=== PATIENT | female | born 1950 | race Caucasian/White ===

== ENCOUNTER 2016-05-30 12:43 | Emergency (ER) | payer OTHER, MEDICAID ==
[~2016-05-30] VITALS: Ht 162.6 cm; Wt 77.1 kg
[~2016-05-30 12:43] MED LIST: ARIP5TAB10; ASPI-1063 PO; CHOL50006; CLOP75TA2 PO; DIPH25CA83 PO; DOCU-19; ESOM40CA; ESOM40CA PO; FAMO20TA98 PO; FLUO40CA49; FLUO40CA8; FLUO40CA8 PO; GLU500 PO; GLU850 PO; HYDR-1189 PO; HYDR-3924 PO; LEVO100T PO; LEVO200T8 PO; LIP10 PO; METF-304; PRO20; QUET300T2 PO; QUET300T5; QUET400T; QUET400T3 PO; QUET50TA14; SERAQUEL; TOPI100T11 PO; TOPI200T PO; TOPI25TA8; VALS160T2 PO; VALS1TAB6 PO; ZOLP5TAB2; [UNRECOGNIZED DRUG - CODE]; [UNRECOGNIZED DRUG - CODE]
[2016-05-30 13:23] VITALS: BP 120/71; PULSE 106; RESP 18; TEMP 97.2; O2SAT 98
[2016-05-30 13:44] LABS: BILIRUBIN,URINE 1+ (NEGATIVE); CLARITY/URINE HAZY (CLEAR); COLOR,URINE YELLOW (YELLOW); GLUCOSE,URINE NEGATIVE (NEGATIVE); KETONES,URINE TRACE (NEGATIVE); LEUKOCYTE ESTERASE ,URINE 2+ (NEGATIVE); NITRITE, URINE NEGATIVE (NEGATIVE); PROTEIN URINE TRACE (NEGATIVE); UROBILINOGEN,URINE 0.2 (0.2-1.0)
[2016-05-30 13:48] LABS: BLOOD, URINE TRACE (NEGATIVE)
[2016-05-30 14:12] LABS: BACTERIA,URINE FEW /HPF (None Seen); MUCUS,URINE None Seen /LPF (None Seen); RBC,URINE 0-3 /HPF (0-3); WBC,URINE 20-50 /HPF (0-3)
[2016-05-30 15:22] VITALS: BP 118/74; PULSE 98; RESP 15; TEMP 97.2; O2SAT 100
== END 2016-05-30 15:22 | disposition home or self-care (01) ==
LOC: SED 12:43
DX: N39.0 Urinary tract infection, site not specified (principal); E11.9 Type 2 diabetes mellitus without complications; G43.909 Migraine, unspecified, not intractable, without status migrainosus; D64.9 Anemia, unspecified; F20.9 Schizophrenia, unspecified; Z90.710 Acquired absence of both cervix and uterus
CPT/HCPCS: 81000-TC; 87086; 87186-TC; 99284

== ENCOUNTER 2017-01-25 15:09 | Outpatient (CLI) | payer OTHER, MEDICAID ==
[~2017-01-25 15:09] MED LIST changes: -ARIP5TAB10; -CHOL50006; -DIPH25CA83 PO; -DOCU-19; -ESOM40CA; -ESOM40CA PO; -FLUO40CA49; -FLUO40CA8; -GLU500 PO; -HYDR-1189 PO; -LEVO200T8 PO; -METF-304; -PRO20; -QUET300T2 PO; -QUET300T5; -QUET400T; -QUET50TA14; -SERAQUEL; -TOPI100T11 PO; -TOPI25TA8; -VALS160T2 PO; -VALS1TAB6 PO; -ZOLP5TAB2; -[UNRECOGNIZED DRUG - CODE]; -[UNRECOGNIZED DRUG - CODE]
== END 2017-01-25 19:39 | disposition home or self-care (01) ==
LOC: SMA 15:09
PROVIDERS: ATTEND Family Medicine
DX: Z12.31 Encounter for screening mammogram for malignant neoplasm of breast (principal)
CPT/HCPCS: G0202

== ENCOUNTER 2017-02-18 13:26 | Outpatient (CLI) | payer OTHER, MEDICAID | END 2017-02-18 20:36 | disposition home or self-care (01) | LOC: SMA 13:26 | PROVIDERS: ATTEND Family Medicine | DX: N63.10 Unspecified lump in the right breast, unspecified quadrant (principal) | CPT/HCPCS: 76642; G0206 ==

== ENCOUNTER 2017-03-04 16:49 | Emergency (ER) | payer OTHER, MEDICAID ==
[~2017-03-04] VITALS: Ht 162.6 cm; Wt 77.6 kg
[2017-03-04 16:53] VITALS: BP_SYST 124
[2017-03-04] MEDS ORDERED: IBUPROFEN 800 MG TABLET PO ONE (17:30)
[2017-03-04 17:58] LABS: BILIRUBIN,URINE NEGATIVE (NEGATIVE); BLOOD, URINE NEGATIVE (NEGATIVE); CLARITY/URINE CLOUDY (CLEAR); COLOR,URINE YELLOW (YELLOW); GLUCOSE,URINE NEGATIVE (NEGATIVE); KETONES,URINE NEGATIVE (NEGATIVE); LEUKOCYTE ESTERASE ,URINE 1+ (NEGATIVE); NITRITE, URINE NEGATIVE (NEGATIVE); PROTEIN URINE NEGATIVE (NEGATIVE)
[2017-03-04 18:19] LABS: RBC,URINE NONE SEEN /HPF (0-3); URIC ACID CRYSTALS,URINE 0-10 /HPF (None Seen); URINE AMORPHOUS PHOSPHATES 3+ /HPF (None Seen)
[2017-03-04 18:20] LABS: BACTERIA,URINE MODERATE /HPF (None Seen); MUCUS,URINE None Seen /LPF (None Seen)
[2017-03-04 18:43] VITALS: BP_SYST 124
== END 2017-03-04 18:32 | disposition home or self-care (01) ==
LOC: SED 16:49
DX: N39.0 Urinary tract infection, site not specified (principal); G43.909 Migraine, unspecified, not intractable, without status migrainosus; K21.9 Gastro-esophageal reflux disease without esophagitis; I10 Essential (primary) hypertension; E11.9 Type 2 diabetes mellitus without complications; F20.0 Paranoid schizophrenia; Z86.73 Personal history of transient ischemic attack (TIA), and cerebral infarction without residual deficits; Z86.2 Personal history of diseases of the blood and blood-forming organs and certain disorders involving the immune mechanism; Z79.899 Other long term (current) drug therapy
CPT/HCPCS: 81000; 87086; 99284; J7030

== ENCOUNTER 2017-04-06 12:51 | Emergency (ER) | payer OTHER, MEDICAID ==
[~2017-04-06] VITALS: Ht 165.1 cm; Wt 72.6 kg
[2017-04-06 12:58] VITALS: BP_SYST 119
[2017-04-06 15:02] LABS: BILIRUBIN,URINE NEGATIVE (NEGATIVE); BLOOD, URINE 3+ (NEGATIVE); CLARITY/URINE HAZY (CLEAR); COLOR,URINE YELLOW (YELLOW); GLUCOSE,URINE NEGATIVE (NEGATIVE); KETONES,URINE NEGATIVE (NEGATIVE); LEUKOCYTE ESTERASE ,URINE 3+ (NEGATIVE); NITRITE, URINE NEGATIVE (NEGATIVE); PH,URINE 6.5 (5.0-8.0); PROTEIN URINE 1+ (NEGATIVE); UROBILINOGEN,URINE 0.2 (0.2-1.0)
[2017-04-06 15:15] LABS: BASOPHILS # (AUTO) 0.1 K/uL (0.0-0.2); EOSINOPHILS % (AUTO) 0.3 % (0.0-4.0); HEMATOCRIT 36.9 % (36-48); HEMOGLOBIN 11.9 g/dL (12.0-16.0); LYMPHOCYTES # (AUTO) 1.7 K/uL (1.0-5.5); LYMPHOCYTES % (AUTO) 12.4 % (20.5-51.5); MEAN CORPUSCULAR HEMOGLOBIN 30 pg (27-31); MEAN CORPUSCULAR HGB CONC 32 % (32-36); MEAN CORPUSCULAR VOLUME 92 fL (79.0-98.0); MONOCYTES # (AUTO) 0.7 K/uL (0.0-1.0); MONOCYTES % (AUTO) 5.4 % (1.7-9.3); NEUTROPHILS # (AUTO) 10.9 K/uL (1.8-7.7); NEUTROPHILS % (AUTO) 80.9 % (40.0-70.0); PLATELET COUNT (AUTO) 308 K/uL (130-430); RED CELL DISTRIBUTION WIDTH 12.8 % (9.0-15.0); WHITE BLOOD COUNT (AUTO) 13.4 K/uL (4.8-10.8)
[2017-04-06 15:16] LABS: BACTERIA,URINE MODERATE /HPF (None Seen); RBC,URINE 20-50 /HPF (0-3); WBC,URINE >100 /HPF (0-3)
[2017-04-06 15:31] LABS: CREATININE 0.61 mg/dL (0.55-1.30)
[2017-04-06 15:36] LABS: ALBUMIN 3.8 g/dL (3.4-4.8); TOTAL BILIRUBIN 0.3 mg/dL (0.0-1.0)
[2017-04-06] MEDS ORDERED: cefTRIAXone 1 GM in D5W 50 ML IV ONE (16:30)
[2017-04-06] MEDS ORDERED: cefTRIAXone 1 GM VIAL ONE (17:16)
[2017-04-06 17:45] VITALS: BP_SYST 119
== END 2017-04-06 17:45 | disposition home or self-care (01) ==
LOC: SED 12:51
DX: N39.0 Urinary tract infection, site not specified (principal); R31.9 Hematuria, unspecified; I10 Essential (primary) hypertension; E11.9 Type 2 diabetes mellitus without complications; K21.9 Gastro-esophageal reflux disease without esophagitis; F20.0 Paranoid schizophrenia; Z86.73 Personal history of transient ischemic attack (TIA), and cerebral infarction without residual deficits; Z90.710 Acquired absence of both cervix and uterus; Z86.2 Personal history of diseases of the blood and blood-forming organs and certain disorders involving the immune mechanism; Z79.82 Long term (current) use of aspirin; Z79.899 Other long term (current) drug therapy; Z85.3 Personal history of malignant neoplasm of breast
CPT/HCPCS: 36415; 80053; 81000; 81025; 85025; 87086; 87186; 96365; 99284; J0696; J7060

== ENCOUNTER 2017-04-17 16:15 | Outpatient (CLI) | payer OTHER, MEDICAID | END 2017-04-17 19:41 | disposition home or self-care (01) | LOC: SRD 16:15 | PROVIDERS: ATTEND Family Medicine | DX: Z01.818 Encounter for other preprocedural examination (principal); J44.9 Chronic obstructive pulmonary disease, unspecified; K44.9 Diaphragmatic hernia without obstruction or gangrene | CPT/HCPCS: 71020-TC ==

== ENCOUNTER 2017-10-10 14:24 | Emergency (ER) | payer OTHER, MEDICAID ==
[~2017-10-10] VITALS: Ht 162.6 cm; Wt 78.0 kg
[2017-10-10 14:25] VITALS: BP_SYST 117
[2017-10-10 14:49] LABS: BILIRUBIN,URINE NEGATIVE (NEGATIVE); BLOOD, URINE 3+ (NEGATIVE); CLARITY/URINE SL CLOUDY (CLEAR); COLOR,URINE YELLOW (YELLOW); GLUCOSE,URINE NEGATIVE (NEGATIVE); KETONES,URINE NEGATIVE (NEGATIVE); LEUKOCYTE ESTERASE ,URINE 3+ (NEGATIVE); NITRITE, URINE NEGATIVE (NEGATIVE); PH,URINE 8.5 (5.0-8.0); PROTEIN URINE 2+ (NEGATIVE); UROBILINOGEN,URINE 0.2 (0.2-1.0)
[2017-10-10 15:25] LABS: BACTERIA,URINE MODERATE /HPF (None Seen); RBC,URINE 20-50 /HPF (0-3); WBC,URINE >100 /HPF (0-3)
[2017-10-10 15:27] LABS: MUCUS,URINE 1+ /LPF (None Seen)
[2017-10-10 15:28] LABS: URINE AMORPHOUS PHOSPHATES 2+ /HPF (None Seen)
[2017-10-10] MEDS ORDERED: KETOROLAC TROMETHAMINE 30 MG VIAL IM ONE (15:45)
[2017-10-10] MEDS ORDERED: cefTRIAXone 1 GM VIAL IM ONE (15:45)
[2017-10-10 16:36] VITALS: BP_SYST 114
== END 2017-10-10 16:36 | disposition home or self-care (01) ==
LOC: SED 14:24
DX: N39.0 Urinary tract infection, site not specified (principal); G62.9 Polyneuropathy, unspecified; K21.9 Gastro-esophageal reflux disease without esophagitis; E11.9 Type 2 diabetes mellitus without complications; I10 Essential (primary) hypertension; Z86.73 Personal history of transient ischemic attack (TIA), and cerebral infarction without residual deficits; Z86.2 Personal history of diseases of the blood and blood-forming organs and certain disorders involving the immune mechanism; Z79.899 Other long term (current) drug therapy
CPT/HCPCS: 81000; 87086; 87186; 96372; 99284; J0696; J1885

== ENCOUNTER 2017-12-18 15:31 | Outpatient (CLI) | payer MEDICARE, MEDICAID ==
[~2017-12-18 15:31] MED LIST changes: -ASPI-1063 PO; +ASPI-1154 PO; +FAMO-132 PO; -FAMO20TA98 PO
== END 2017-12-18 19:06 | disposition home or self-care (01) ==
LOC: SRD 15:31
PROVIDERS: ATTEND Family Medicine
DX: Z01.818 Encounter for other preprocedural examination (principal); K44.9 Diaphragmatic hernia without obstruction or gangrene
CPT/HCPCS: 71046-TC

== ENCOUNTER 2018-02-09 19:53 | Emergency (ER) | payer OTHER, MEDICAID ==
[~2018-02-09] VITALS: Ht 162.6 cm; Wt 78.0 kg
--- NOTE | 2018-02-09 20:04 | NUR ---
UA COLLECTED IN WAITING
--- NOTE | 2018-02-09 20:05 | NUR ---
Patient to ER bed 3 to gown for evaluation. Side rails up.
[2018-02-09 20:10] VITALS: BP_SYST 128
--- NOTE | 2018-02-09 20:10 | NUR ---
Patient AOx4, ambulatory, presents to ER with complaint of difficulty urinating and constipation x1 week. Patient states discomfort to left lower back. Patient has hx of right breast tumor with bilateral mastectomy. Patient also states she has unexplained discoloration to bilateral inner thighs. No other symptoms or complaints.
--- NOTE | 2018-02-09 20:45 | NUR ---
MICKI GUTHRIE Kwaw at bedside for medical evaluation.
[2018-02-09 22:16] LABS: BILIRUBIN,URINE NEGATIVE (NEGATIVE); BLOOD, URINE NEGATIVE (NEGATIVE); CLARITY/URINE HAZY (CLEAR); COLOR,URINE YELLOW (YELLOW); GLUCOSE,URINE NEGATIVE (NEGATIVE); KETONES,URINE NEGATIVE (NEGATIVE); LEUKOCYTE ESTERASE ,URINE 2+ (NEGATIVE); NITRITE, URINE NEGATIVE (NEGATIVE); PH,URINE 7.5 (5.0-8.0); PROTEIN URINE NEGATIVE (NEGATIVE); UROBILINOGEN,URINE 0.2 (0.2-1.0)
[2018-02-09 22:22] LABS: RBC,URINE 0-3 /HPF (0-3)
[2018-02-09 22:23] LABS: BACTERIA,URINE MODERATE /HPF (None Seen); MUCUS,URINE None Seen /LPF (None Seen)
[2018-02-10] VITALS: BP_SYST 119
--- NOTE | 2018-02-10 | NUR ---
Patient given written and verbal discharge instructions and verbalizes understanding. ER MD discussed with patient the results and treatment provided. Patient in stable condition. ID arm band removed. Rx of Pyridium and Cipro given. Patient educated on pain management and to follow up with PMD. Pain Scale 2/10 tolerable to patient. Opportunity for questions provided and answered. Medication side effect fact sheet provided.
== END 2018-02-10 | disposition home or self-care (01) ==
LOC: SED 19:53
DX: N39.0 Urinary tract infection, site not specified (principal); K59.00 Constipation, unspecified; I25.10 Atherosclerotic heart disease of native coronary artery without angina pectoris; E11.9 Type 2 diabetes mellitus without complications; K21.9 Gastro-esophageal reflux disease without esophagitis; I10 Essential (primary) hypertension; D64.9 Anemia, unspecified; F20.9 Schizophrenia, unspecified; Z79.899 Other long term (current) drug therapy
CPT/HCPCS: 81000-TC; 87086; 99284

== ENCOUNTER 2018-03-31 13:49 | Emergency (ER) | payer OTHER, MEDICAID ==
[~2018-03-31] VITALS: Ht 162.6 cm; Wt 78.0 kg
[2018-03-31 14:01] VITALS: BP_SYST 128
[2018-03-31 14:23] VITALS: BP_SYST 128
== END 2018-03-31 14:23 | disposition home or self-care (01) ==
LOC: SED 13:49
DX: N39.0 Urinary tract infection, site not specified (principal); K21.9 Gastro-esophageal reflux disease without esophagitis; E11.9 Type 2 diabetes mellitus without complications; I10 Essential (primary) hypertension; Z85.3 Personal history of malignant neoplasm of breast; Z86.73 Personal history of transient ischemic attack (TIA), and cerebral infarction without residual deficits; Z86.2 Personal history of diseases of the blood and blood-forming organs and certain disorders involving the immune mechanism; Z90.710 Acquired absence of both cervix and uterus; Z79.82 Long term (current) use of aspirin; Z79.899 Other long term (current) drug therapy
CPT/HCPCS: 99283

== ENCOUNTER 2018-04-25 16:45 | Emergency (ER) | payer MEDICARE, MEDICAID ==
[~2018-04-25] VITALS: Ht 162.6 cm; Wt 76.7 kg
[2018-04-25 16:52] VITALS: BP_SYST 122
--- NOTE | 2018-04-25 16:55 | NUR ---
Placed in room 2. Placed on blood pressure machine and pulse oximeter. To gown for exam. x1 Side rail up. RESUMED CARE OF PATIENT.
[2018-04-25 17:04] LABS: BILIRUBIN,URINE NEGATIVE (NEGATIVE); BLOOD, URINE 1+ (NEGATIVE); COLOR,URINE YELLOW (YELLOW); GLUCOSE,URINE NEGATIVE (NEGATIVE); KETONES,URINE NEGATIVE (NEGATIVE); LEUKOCYTE ESTERASE ,URINE 2+ (NEGATIVE); NITRITE, URINE NEGATIVE (NEGATIVE); PH,URINE 7.5 (5.0-8.0); PROTEIN URINE NEGATIVE (NEGATIVE)
--- NOTE | 2018-04-25 17:05 | NUR ---
PATIENT SITTING UP ON BED. AAOX4. RESPIRATIONS EVEN AND UNLABORED. NO SOB. DENIES OF ANY CHEST PAIN OR SOB. PT RESTING COMFORTABLY IN BED. NO ACUTE DISTRESS. PT WITH C/O PELVIC PRESSURE, URINARY FREQUENCY, URINARY URGENCY, AND DRIBBLING x1 WEEK. NO FEVERS. NO FLANK PAIN. PELVIC PRESSURE = 4/10; TOLERABLE VERBALIZED. REST AND RELAXATION ENCOURAGED. WILL CONTINUE TO MONITOR. AWAITING LAB RESULTS.
--- NOTE | 2018-04-25 17:07 | NUR ---
ER Dr. ROSS at bedside examining patient.
[2018-04-25 17:10] LABS: CLARITY/URINE HAZY (CLEAR)
[2018-04-25 17:11] LABS: BACTERIA,URINE FEW /HPF (None Seen); WBC,URINE 20-50 /HPF (0-3)
[2018-04-25 17:12] LABS: MUCUS,URINE None Seen /LPF (None Seen)
--- NOTE | 2018-04-25 17:26 | NUR ---
Patient given written and verbal discharge instructions and verbalizes understanding. ER MD discussed with patient the results and treatment provided. Patient in stable condition. ID arm band removed. Rx of Cipro, Pyridium given. Patient educated on pain management and to follow up with PMD. Pain Scale 0/10. Opportunity for questions provided and answered, including dicussion of changing diaper every time she voids rather than once daily as has been her practice. Medication side effect fact sheet provided.
== END 2018-04-25 17:28 | disposition home or self-care (01) ==
LOC: SED 16:45
DX: N39.0 Urinary tract infection, site not specified (principal); E11.9 Type 2 diabetes mellitus without complications; I10 Essential (primary) hypertension; K21.9 Gastro-esophageal reflux disease without esophagitis; Z86.73 Personal history of transient ischemic attack (TIA), and cerebral infarction without residual deficits; Z85.3 Personal history of malignant neoplasm of breast; Z79.899 Other long term (current) drug therapy
CPT/HCPCS: 81000-TC; 87086; 87186-TC; 99283

== ENCOUNTER 2018-05-08 15:41 | Inpatient (IN) | payer MEDICARE, MEDICAID ==
[~2018-05-08] VITALS: Ht 162.6 cm; Wt 78.1 kg
[2018-05-08 15:50] VITALS: BP_SYST 137
--- NOTE | 2018-05-08 15:55 | NUR ---
Patient triaged and placed in waiting room. VSS and patient appears in no acute distress at this time. Accompanied by self, awaiting available bed, and MD notified of need for MSE.
[2018-05-08 16:26] LABS: BILIRUBIN,URINE NEGATIVE (NEGATIVE); BLOOD, URINE TRACE (NEGATIVE); CLARITY/URINE HAZY (CLEAR); COLOR,URINE YELLOW (YELLOW); GLUCOSE,URINE NEGATIVE (NEGATIVE); KETONES,URINE TRACE (NEGATIVE); LEUKOCYTE ESTERASE ,URINE 3+ (NEGATIVE); NITRITE, URINE NEGATIVE (NEGATIVE); PH,URINE 8.5 (5.0-8.0); PROTEIN URINE 2+ (NEGATIVE)
[2018-05-08 16:33] LABS: BACTERIA,URINE FEW /HPF (None Seen); MUCUS,URINE None Seen /LPF (None Seen); WBC,URINE >100 /HPF (0-3); YEAST,URINE None Seen /HPF (None Seen)
--- NOTE | 2018-05-08 17:05 | NUR ---
Patient to ER bed 2 for evaluation. Report given to Giovanni.
--- NOTE | 2018-05-08 17:10 | NUR ---
Pt presents to ER c/o urinary frequency and urgency x 2 weeks. Pt reports dysuria and that she was here on 04/25, diagnosed with a UTI, and given Cipro. Pt reports she completed the antibiotics, but she still has same symptoms. Pt also c/o lower back pain, fevers, and generalized weakness x 3 days. Otherwise, pt denies other symptoms. Pt AOX4, speaking full sentences, ambulatory.
[2018-05-08] MEDS ORDERED: cefTRIAXone 1 GM VIAL IM ONE (17:15)
[2018-05-08] MEDS ORDERED: LIDOCAINE 1%, 20 ML MDV 20 ML ONE (17:22)
--- NOTE | 2018-05-08 17:22 | NUR ---
Pt medicated as ordered by ER Dr. Randall. Pt tolerated well; will continue to monitor.
--- NOTE | 2018-05-08 17:23 | NUR ---
ER Dr. Randall at bedside examining patient.
--- NOTE | 2018-05-08 17:24 | NUR ---
Pt expresses to Dr. Randall that she would like to be admitted. Dr. Randall had discharge paperwork already prepared for pt prior to her expressing interest in being admitted. Blood cultures had not been drawn before administration of IM rocephin because Dr. Randall had plans of discharging pt.
--- NOTE | 2018-05-08 17:32 | NUR ---
Laboratory at bedside.
--- NOTE | 2018-05-08 17:35 | NUR ---
Medication reconciliation completed with information provided by pt. Any prior medication reconciliation on file was reviewed and corrected.
[2018-05-08 17:49] LABS: BASOPHILS % (AUTO) 0.3 % (0.0-2.0); EOSINOPHILS # (AUTO) 0.1 K/uL (0.0-0.4); HEMATOCRIT 39.5 % (36-48); HEMOGLOBIN 13.2 g/dL (12.0-16.0); LYMPHOCYTES # (AUTO) 1.9 K/uL (1.0-5.5); LYMPHOCYTES % (AUTO) 17.4 % (20.5-51.5); MEAN CORPUSCULAR HEMOGLOBIN 31 pg (27-31); MEAN CORPUSCULAR HGB CONC 33 % (32-36); MEAN CORPUSCULAR VOLUME 92 fL (79.0-98.0); MONOCYTES # (AUTO) 0.6 K/uL (0.0-1.0); NEUTROPHILS # (AUTO) 8.2 K/uL (1.8-7.7); NEUTROPHILS % (AUTO) 75.3 % (40.0-70.0); PLATELET COUNT (AUTO) 345 K/uL (130-430); RED BLOOD CELL COUNT(AUTO) 4.28 MIL/uL (4.2-6.2); RED CELL DISTRIBUTION WIDTH 13.2 % (9.0-15.0); WHITE BLOOD COUNT (AUTO) 10.8 K/uL (4.8-10.8)
--- NOTE | 2018-05-08 17:50 | NUR ---
# 22 gauge angiocath placed to r hand. Use of asceptic technique. Opsite placed over site. Blood return noted. Flushed with 10 cc of normal saline. No evidence of infiltration noted. Patient tolerated well.
[2018-05-08 17:58] LABS: CREATININE 0.84 mg/dL (0.55-1.30); POTASSIUM 4.3 mmol/L (3.5-5.1)
[2018-05-08 18:02] LABS: ALBUMIN 3.5 g/dL (3.4-4.8); TOTAL BILIRUBIN 0.2 mg/dL (0.0-1.0)
--- NOTE | 2018-05-08 18:42 | NUR ---
Dr. Randall at bedside speaking with pt to discuss plan to discharge after speaking with Dr. Pickens.
--- NOTE | 2018-05-08 18:52 | NUR ---
Attempted to discharge pt as instructed by Dr. Randall, however pt refuses to sign dischage paperwork and still insists on being admitted. Pt requests to speak with Dr. Randall once again. Dr. Randall made aware of situation.
--- NOTE | 2018-05-08 19:37 | NUR ---
ADMISSION: The patient, VIVIANA NARVAEZ, 67 y/o, F admitted by DAVID CORTES MD,with the diagnosis of UTI was given written information regarding hospital policies, unit procedures and contact persons.
[2018-05-08 19:43] VITALS: BP_SYST 135
[2018-05-08] MEDS ORDERED: ONDANSETRON HCL 4 MG/2 ML VIAL IVP PRN (20:00)
[2018-05-08] MEDS ORDERED: ACETAMINOPHEN 325 MG TABLET PO PRN (20:00)
[2018-05-08] MEDS ORDERED: DEXTROSE 50% JECT 50 ML DISP.SYRIN IVP PRN (20:00)
[2018-05-08] MEDS ORDERED: ENALAPRILAT DIHYDRATE 1.25 MG/ML VIAL IVP PRN (20:00)
[2018-05-08] MEDS ORDERED: cloNIDine HCL 0.1 MG TABLET PO PRN (20:00)
[2018-05-08] MEDS ORDERED: HYDROcodone/ACETAMIN 7.5-325 MG TAB PO SCH (20:00)
--- NOTE | 2018-05-08 20:15 | NUR ---
RECEIVED REPORT Received report from admitting nurse, Mira. Patient is AOx4 and resting supine in bed. She has SL IV to R hand, 22G. Patient reports she had a tumor on right breast and had a double mastectomy, no lymph nodes were removed. She stated that it is ok to use either arm for blood pressure or blood draw. Bed is locked to lowest position, two side rails up, bed alarm is on,and call light is near. Will monitor.
[2018-05-08] MEDS: NACL 0.9% 1,000 ML IV SCH (20:37)
[2018-05-08] MEDS ORDERED: PIPERACILLIN/TAZOBACTAM 3.375 GM/VIAL (ZOSYN) IV ONE (20:51)
[2018-05-08 20:59] LABS: THYROID STIMULATING HORMONE 0.22 uIu/mL (0.34-4.82)
[2018-05-08] MEDS ORDERED: GENTAMICIN SULFATE 300 MG in NS 100 ML IV ONE (21:00)
--- NOTE | 2018-05-08 21:10 | NUR ---
PAGED PAGED DOCTOR SOPHIA
--- NOTE | 2018-05-08 21:30 | NUR ---
NOTE Spoke w/Dr. Pickens regarding clarification of antibiotic medication. He provided order and I read back and he asked if he could speak with the charge nurse. I also clarified an order regarding the patient's fingerstick glucose accucheck. I let him know the patient is diabetic and asked if he wanted ACHS frequency and he stated that he already placed an order, which is Q6H and I left that order in place. Last I clarified the diet order; the patient was changed from regular diet to CCHO.
[2018-05-08] MEDS: PIPERACILLIN/TAZO 3.375/DEX-IS 50 ML IV SCH (21:59)
[2018-05-08] MEDS ORDERED: GENTAMICIN SULFATE 200 MG in NS 100 ML IV ONE (22:00)
[2018-05-08] MEDS ORDERED: GENTAMICIN 100 mg/50 mL NS 100 ML IV ONE (22:12)
[2018-05-09 01:31] VITALS: BP_SYST 106
--- NOTE | 2018-05-09 03:12 | NUR ---
NOTE Patient is sleeping, no s/sx of distress noted. Nonlabored breathing. Safety precautions in place and call light w/in reach.
--- NOTE | 2018-05-09 05:00 | NUR ---
NOTE Patient was administered due antibiotic and tolerated. I assissted patient ambulated to the restroom, she had a steady gait. She returned to bed and the bed alarm was turned on again. The patient reports that she feels much better today. No further needs. Will monitor.
[2018-05-09] MEDS: PIPERACILLIN/TAZO 3.375/DEX-IS 50 ML IV SCH ×3 (05:15→12:56)
[2018-05-09] MEDS: LEVOTHYROXINE SODIUM 0.1 MG TABLET PO SCH (06:26)
[2018-05-09] MEDS: NACL 0.9% 1,000 ML IV SCH ×3 (06:27→23:14)
--- NOTE | 2018-05-09 06:30 | NUR ---
closing note Patient resting in comfortable position in no sign of distress and watching t.v. Morning glucose accucheck was done with a result of 114, no coverage due. 22G IV to R hand patent and fluids infusing as ordered. Safety precautions in place, call light near. Will endorse care to morning nurse.
--- NOTE | 2018-05-09 07:30 | NUR ---
received report from nite nurse. patient is stable. no sob nor pain noted. an observation patient.
[2018-05-09 08:49] VITALS: BP_SYST 140
[2018-05-09] MEDS: FLUoxetine HCL 20 MG CAPSULE (PROzac) PO SCH (09:33)
[2018-05-09] MEDS: ASPIRIN 81 MG TABLET(ECOTRIN) PO SCH (09:33)
[2018-05-09] MEDS: CLOPIDOGREL BISULFATE 75 MG TABLET PO SCH (09:33)
[2018-05-09] MEDS: TOPIRAMATE 100 MG TABLET(Topamax) PO SCH (09:33)
[2018-05-09] MEDS: ATORVASTATIN 10 MG TABLET PO SCH (09:34)
[2018-05-09] MEDS: FAMOTIDINE 20 MG TABLET PO SCH (09:34)
--- NOTE | 2018-05-09 09:35 | NUR ---
due meds given at this time. sitting on the chair. no pain no sob noted.
--- NOTE | 2018-05-09 09:57 | NUR ---
CONSULTATION PAGED REASON FOR CONSULTATION:UTI WAS CONSULT CALLED?Y PERSON WHO WAS NOTIFIED:SHAJI. CONSULTING PHYSICIAN:RANULFO SCHRADER [employer] SPECIALTY:INFECTIOUS DISEASE [employer] PHONE NUMBER:[phone] REQUESTING PHYSICIAN:DAVID COOPER
[2018-05-09 11:30] VITALS: BP_SYST 133
--- NOTE | 2018-05-09 12:01 | NUR ---
norco tablet given for headache grade of 7. made comfortable. pulled out iv access.
--- NOTE | 2018-05-09 13:18 | NUR ---
NEW IV ACCESS ON THE RT HAND #22.
[2018-05-09 15:45] VITALS: BP_SYST 118
--- NOTE | 2018-05-09 16:46 | NUR ---
MD JUAN RAMIREZ CALLED AT SPOKE WITH DR.JANDIAL REN [employer]JN[employer] BUILDING MAINTENANCE SUPERVISOR.
--- NOTE | 2018-05-09 17:45 | NUR ---
DR BARRON CAME AND SEE THE PATIENT.
[2018-05-09] MEDS ORDERED: GENTAMICIN 100 mg/50 mL NS 50 ML IV ONE (18:00)
[2018-05-09] MEDS: INSULIN REGULAR, HUMAN 100 UNITS/ML, 10 ML VIAL (novoLIN R) SUBCUT PRN (18:36)
--- NOTE | 2018-05-09 18:37 | NUR ---
LATEST BS 223MG/DL COVERAGE GIVEN LEFT ARM.
--- NOTE | 2018-05-09 19:38 | NUR ---
OPENING NOTE Received patient AAOx4, she was ambulating back from the restroom with assist from the TOMATO GRADER. Presently she denies pain and VSS. 22G IV to R hand and NS infusing as ordered. Bed was locked to lowest position, bed alarm on, 2 rails up and call light near. Updated board and reviewed plan of care.
[2018-05-09 20:00] VITALS: BP_SYST 121
--- NOTE | 2018-05-09 23:15 | NUR ---
note Patient is awake, IV alarm was ringing. IV fluids replaced. Will monitor.
[2018-05-09 23:36] VITALS: BP_SYST 127
--- NOTE | 2018-05-10 00:30 | NUR ---
NOTE Patient washed hands after use of restroom and dressing on IV cath got loose. IV leaking, and no longer patent. Will start a new IV.
--- NOTE | 2018-05-10 01:30 | NUR ---
IV PLACEMENT: #22 gauge angiocath placed to LFA . Use of asceptic technique. Opsite placed over site. Blood return noted. Flushed with 10 cc of normal saline. No evidence of infiltration noted. Patient tolerated .
[2018-05-10] MEDS: MORPHINE 4 MG/ML INJ. SYRINGE IVP PRN ×4 (01:36→20:24)
--- NOTE | 2018-05-10 01:40 | NUR ---
NOTE Patient reported headache pain of moderate level and was administered prn medication for moderate pain. She was educated on side effects and verbalized understanding. Safety precautions in place and call light w/in reach. Will monitor.
--- NOTE | 2018-05-10 03:00 | NUR ---
NOTE Patient resting w/ eyes closed, nonlabored breathing. Bed lowest position, bed alarm on, call light near.
[2018-05-10] MEDS: LEVOTHYROXINE SODIUM 0.1 MG TABLET PO SCH (06:15)
--- NOTE | 2018-05-10 06:45 | NUR ---
CLOSING NOTE Patient resting in comfortable position. 22G to LFA patent and IFV infusing as ordered. Needs met throughout shift. Morning glucose accucheck was 99, no coverage due. Safety precautions in place, will endorse care to morning nurse.
--- NOTE | 2018-05-10 07:30 | NUR ---
received patient at the bedside. given by nite nurse. aaox 4 no pain nor sob noted. vitals signs stable and documented. lungs bilateraly clear and abdomen soft and non distended. call lights within reach. instructed to call for assistance.
[2018-05-10 08:00] VITALS: BP_SYST 99
--- NOTE | 2018-05-10 08:30 | NUR ---
patient is stable. no sob nor pain noted. will continue to monitor patients status.
--- NOTE | 2018-05-10 09:30 | NUR ---
came and see the patient. patient is stable. trying to get some sleep.
[2018-05-10] MEDS: CLOPIDOGREL BISULFATE 75 MG TABLET PO SCH (09:58)
[2018-05-10] MEDS: ATORVASTATIN 10 MG TABLET PO SCH (09:58)
[2018-05-10] MEDS: FAMOTIDINE 20 MG TABLET PO SCH (09:58)
[2018-05-10] MEDS: ASPIRIN 81 MG TABLET(ECOTRIN) PO SCH (09:58)
[2018-05-10] MEDS: TOPIRAMATE 100 MG TABLET(Topamax) PO SCH (09:59)
[2018-05-10] MEDS: FLUoxetine HCL 20 MG CAPSULE (PROzac) PO SCH (09:59)
--- NOTE | 2018-05-10 10:00 | NUR ---
due medication given at this time.
--- NOTE | 2018-05-10 11:00 | NUR ---
VERBALIZED WANTS TO EAT LUNCH. INFORMED PATIENT FOOD TRAY IS COMING SOON.
[2018-05-10 11:13] VITALS: BP_SYST 125
[2018-05-10] MEDS: NACL 0.9% 1,000 ML IV SCH (11:21)
[2018-05-10] MEDS: INSULIN REGULAR, HUMAN 100 UNITS/ML, 10 ML VIAL (novoLIN R) SUBCUT PRN ×2 (12:46→17:59)
--- NOTE | 2018-05-10 14:02 | NUR ---
Dr Best called for the result of urine with Mrsa. awaiting to call back spoke to [facility] cat service.
--- NOTE | 2018-05-10 14:30 | NUR ---
PATIENTS WANTS TO WALK IN THE HALLWAY. PLACED ON MASK DUE TO CONTACT ISOLATION. NO SOB NOR COMPLAINED OF PAIN AT THIS TIME. STABLE.
--- NOTE | 2018-05-10 16:00 | NUR ---
HOB ELEVATED. MADE COMFORTABLE.
[2018-05-10 16:13] VITALS: BP_SYST 109; BP_SYST 121
--- NOTE | 2018-05-10 17:30 | NUR ---
IV ANTIBIOTIC GIVEN. FLUSH WITH NORMAL SALINE.
--- NOTE | 2018-05-10 18:00 | NUR ---
LATEST BS IS 192MG.DL COVERAGE GIVEN ON THE LEFT DELTOID AREA. MADE COMFORTABLE.
--- NOTE | 2018-05-10 19:11 | NUR ---
PATIENT SIGNED MRSA FORM ACKNOWLEDGEMENT.
--- NOTE | 2018-05-10 19:43 | NUR ---
ENDORSED TO INCOMING NURSE JESENIA GUZMAN.
--- NOTE | 2018-05-10 19:50 | NUR ---
OPENING NOTE Patient resting in the bed comfortable. No acute distress. AAO x 4. C/o headache, will given med. Skin warm and dry to touch. IV intact to LFA, no redness, no swelling, no drainage. On NS at 100ml/hr, infusing well. Discussed the safety issue, use call light when need help, and plan of care, verbally understanding. Safety measure maintained. Bed locked in low position, side rails up, bed alarm on. Call light within reached. On contact isolation. Will continue to monitor.
[2018-05-10 20:00] VITALS: BP_SYST 128
--- NOTE | 2018-05-10 21:20 | NUR ---
BATHROOM Assisted to bathroom, able to ambulate herself in steady gait. No acute distress. Assisted back to bed. IV intact, IVF infusing well. Safety measure maintained. Bed locked in low position, side rails up, bed alarm on. Call light within reached. Continue to monitor.
[2018-05-10 23:24] VITALS: BP_SYST 119
[2018-05-11] MEDS: MORPHINE 4 MG/ML INJ. SYRINGE IVP PRN ×2 (00:17→06:36)
--- NOTE | 2018-05-11 00:17 | NUR ---
MORPHINE GIVEN Patient c/o headache 12/06, Morphine 4MG IVP given as ordered. No acute distress. Safety measure maintained. Bed locked in low position, side rails up, bed alarm on. Call light within reached. Continue to monitor.
--- NOTE | 2018-05-11 01:55 | NUR ---
ROUND Patient resting in the bed with eyes closed. No acute distress. Respiration even and unlabored. IV intact, IVF infusing well. Safety measure maintained. Bed locked in low position, side rails up, bed alarm on. Call light within reached. Continue to monitor.
[2018-05-11] MEDS: NACL 0.9% 1,000 ML IV SCH ×2 (03:53→08:00)
--- NOTE | 2018-05-11 04:22 | NUR ---
NOTE Patient resting in the bed with eyes closed. No acute distress. Iv intact, IVF infusing well. Continue on contact isolation. Safety measure maintained. Call light within reached. Bed locked in low position, side rails up, bed alarm on. Continue to monitor.
[2018-05-11] MEDS: LEVOTHYROXINE SODIUM 0.1 MG TABLET PO SCH (06:35)
--- NOTE | 2018-05-11 06:38 | NUR ---
CLOSING NOTE Patient resting in the bed comfortable. No acute distress. PRN pain med given as needed. Skin warm and dry to touch. IV intact to LFA, no redness, no swelling, no drainage. On NS at 100ml/hr, infusing well. All needs met. Hourly rounding during shift. Safety measure maintained. Bed locked in low position, side rails up, bed alarm on. Call light within reached. On contact isolation. Will endorse to morning shift nurse.
[2018-05-11 06:54] LABS: CALCIUM 8.1 mg/dL (8.4-11.0); CREATININE 0.56 mg/dL (0.55-1.30); POTASSIUM 3.8 mmol/L (3.5-5.1)
[2018-05-11 06:55] LABS: BASOPHILS # (AUTO) 0.1 K/uL (0.0-0.2); BASOPHILS % (AUTO) 1.4 % (0.0-2.0); EOSINOPHILS # (AUTO) 0.1 K/uL (0.0-0.4); EOSINOPHILS % (AUTO) 1.5 % (0.0-4.0); HEMOGLOBIN 11.9 g/dL (12.0-16.0); LYMPHOCYTES # (AUTO) 1.9 K/uL (1.0-5.5); LYMPHOCYTES % (AUTO) 29.6 % (20.5-51.5); MEAN CORPUSCULAR HEMOGLOBIN 31 pg (27-31); MEAN CORPUSCULAR HGB CONC 33 % (32-36); MEAN CORPUSCULAR VOLUME 93 fL (79.0-98.0); MONOCYTES # (AUTO) 0.5 K/uL (0.0-1.0); MONOCYTES % (AUTO) 8.1 % (1.7-9.3); NEUTROPHILS # (AUTO) 3.7 K/uL (1.8-7.7); NEUTROPHILS % (AUTO) 59.4 % (40.0-70.0); PLATELET COUNT (AUTO) 305 K/uL (130-430); RED BLOOD CELL COUNT(AUTO) 3.88 MIL/uL (4.2-6.2); WHITE BLOOD COUNT (AUTO) 6.3 K/uL (4.8-10.8)
[2018-05-11 07:03] LABS: ALBUMIN 2.9 g/dL (3.4-4.8); TOTAL BILIRUBIN 0.3 mg/dL (0.0-1.0)
--- NOTE | 2018-05-11 07:35 | NUR ---
RECEIVED PATIENT AT THE BEDSIDE VIA NITE NURSE. VITALS SIGNS STABLE. LUNGS BILATERALLY CLEAR. ABDOMEN SOFT AND NON DISTENDED. NO PAIN NOR SOB NOTED. CALL LIGHTS WITHIN REACH. WILL CONTINUE TO MONITOR PATIENTS STATUS.
--- NOTE | 2018-05-11 08:00 | NUR ---
HAD BREAKFAST GOOD 100% GIVEN. MADE COMFORTABLE.
[2018-05-11] MEDS ORDERED: VANCOMYCIN HCL 1 GM/NS PREMIX 250 ML IV ONE (08:15)
[2018-05-11] MEDS ORDERED: Bactrim DS PO (08:17)
[2018-05-11] MEDS ORDERED: LACT1CAP57 PO (08:20)
[2018-05-11] MEDS: ATORVASTATIN 10 MG TABLET PO SCH (08:28)
[2018-05-11] MEDS: FAMOTIDINE 20 MG TABLET PO SCH (08:28)
[2018-05-11] MEDS: TOPIRAMATE 100 MG TABLET(Topamax) PO SCH (08:28)
[2018-05-11] MEDS: ASPIRIN 81 MG TABLET(ECOTRIN) PO SCH (08:28)
[2018-05-11] MEDS: CLOPIDOGREL BISULFATE 75 MG TABLET PO SCH (08:28)
[2018-05-11] MEDS: FLUoxetine HCL 20 MG CAPSULE (PROzac) PO SCH (08:28)
--- NOTE | 2018-05-11 08:31 | NUR ---
PATIENT HAD MORNING ADLS. TOOTHBRUSHING WASHING HERSELF AND WENT TO THE BATHROOM. STABLE.
--- NOTE | 2018-05-11 08:33 | NUR ---
DUE MEDICATION GIVEN ORDERED.
[2018-05-11] MEDS ORDERED: SULFAMETHOXAZOLE/TRIMETHOPR DS 1 TABLET PO SCH (09:00)
--- NOTE | 2018-05-11 09:30 | NUR ---
WATCHING TV. NO SOB NOR PAIN NOTED.
[2018-05-11 10:10] VITALS: BP_SYST 108
[2018-05-11 10:25] VITALS: BP_SYST 99
--- NOTE | 2018-05-11 10:36 | NUR ---
STILL ON ANTIBIOTIC THERAPY OF VANCOMYCIN. VERBALIZED WANTS TO GO BY [employer]. NO RIDE 2 CARS BROKE DOWN.
--- NOTE | 2018-05-11 11:48 | NUR ---
latest bs 104 mg/dl nocoverage given. verbalized wants to gome after lunch
--- NOTE | 2018-05-11 12:20 | NUR ---
HAD LUNCH GOOD. VERBALIZED WANTS TO GO HOME SOON. 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
[2018-05-11 12:30] VITALS: BP_SYST 109
--- NOTE | 2018-05-11 13:00 | NUR ---
PATIENT DISCHARGED IN STABLE CONDITION WANTS TO HAVE A WHEELCHAIR. REMOVED IV ACCESS AND APPLIED [facility] ID BAND REMOVED. DISCHARGED INSTRUCTIONS GIVEN, INCLUDING MEDICATION TO CONTINUE AT HOME AND FOLLOW UP WITH THE TRACK WORKER IN ONE WEEK.
--- NOTE | 2018-05-13 12:06 | NUR ---
Discharge Follow Up Phone Call VALANCE CUTTER phoned patient, . Patient stated she was feeling much better. She filled her prescription and is taking it as directed. VALANCE CUTTER advised on the importance of taking the antibiotic as directed and completing the full dose. Patient has a follow up appointment with PCP Dr Barbosa tomorrow. Patient is using her blood glucose monitor as directed and her sugars are staying stable. Patient was happy with her nursing care at [facility].
== END 2018-05-11 13:05 | disposition home or self-care (01) | DRG 690 ==
LOC: SED 15:41 → SMU 19:11 → OBSVTOIN 05-09 17:55
PROVIDERS: ADMIT Internal Medicine Hospice and Palliative Medicine; ATTEND Internal Medicine Hospice and Palliative Medicine
DX: N12 Tubulo-interstitial nephritis, not specified as acute or chronic (principal); F20.0 Paranoid schizophrenia; K21.9 Gastro-esophageal reflux disease without esophagitis; B95.62 Methicillin resistant Staphylococcus aureus infection as the cause of diseases classified elsewhere; B96.20 Unspecified Escherichia coli [E. coli] as the cause of diseases classified elsewhere; E11.9 Type 2 diabetes mellitus without complications; E78.5 Hyperlipidemia, unspecified; I10 Essential (primary) hypertension; Z87.440 Personal history of urinary (tract) infections; Z85.3 Personal history of malignant neoplasm of breast; Z86.73 Personal history of transient ischemic attack (TIA), and cerebral infarction without residual deficits
CPT/HCPCS: 36415; 80053; 80061; 81000-TC; 82962; 83036; 83605; 84443-TC; 85025; 87040-TC; 87086; 87186-TC; 96372; 99284; G0378; J0696; J1580; J1815; J2001; J2270; J2543; J3370; J7030; J7060

== ENCOUNTER 2021-03-09 05:27 | Emergency (ER) | payer OTHER, MEDICAID ==
[~2021-03-09] VITALS: Ht 162.6 cm; Wt 72.6 kg
[~2021-03-09 05:27] MED LIST changes: -ASPI-1154 PO; +ASPI-1457 PO; +Bactrim DS PO; -HYDR-3924 PO; +HYDR-4497 PO; +LACT1CAP57 PO; -QUET400T3 PO; +QUET400T5 PO
--- NOTE | 2021-03-09 05:33 | NUR ---
Patient to ER bed 4 to gown for evaluation. Side rails up. Report given to Nirav GUZMAN.
[2021-03-09 05:35] VITALS: BP_SYST 123
--- NOTE | 2021-03-09 05:41 | NUR ---
PT ARRIVED TO ER WITH COMPLAINTS OF RIGHT SIDED HEAD PAIN SICE 03/06/21. -TRAUMA. 02/05 PAIN. STATES SHE WENT TO THE DENTISTS ON 03/06/21 AND HER PAIN STARTED AFTER THAT. PT IS A&OX4.
--- NOTE | 2021-03-09 05:57 | NUR ---
MICKI Sales at bedside examining patient.
[2021-03-09] MEDS ORDERED: ACETAMINOPHEN 325 MG TABLET PO ONE (06:00)
[2021-03-09] MEDS ORDERED: PROCHLORPERAZINE EDISYLATE 10 MG/2 ML VIAL IVP ONE (06:15)
[2021-03-09] MEDS ORDERED: DIPHENHYDRAMINE HCL 25 MG CAPSULE PO ONE (06:15)
--- NOTE | 2021-03-09 06:27 | NUR ---
# 20 gauge angiocath placed to RIGHT FOREARM. Use of asceptic technique. Opsite placed over site. Blood return noted. Blood for lab drawn from site. Flushed with 10 cc of normal saline. No evidence of infiltration noted. Patient tolerated well.
--- NOTE | 2021-03-09 06:28 | NUR ---
Patient transported to radiology via GURNEY, accompanied by DEANNE.
[2021-03-09] MEDS ORDERED: NS 500 ML IV ONE (06:30)
[2021-03-09 06:57] LABS: BASOPHILS % (AUTO) 0.5 % (0.0-2.0); EOSINOPHILS # (AUTO) 0.1 K/uL (0.0-0.4); EOSINOPHILS % (AUTO) 1.8 % (0.0-4.0); HEMATOCRIT 34.3 % (36-48); HEMOGLOBIN 11.2 g/dL (12.0-16.0); LYMPHOCYTES # (AUTO) 1.8 K/uL (1.0-5.5); LYMPHOCYTES % (AUTO) 31.2 % (20.5-51.5); MEAN CORPUSCULAR HEMOGLOBIN 29 pg (27-31); MEAN CORPUSCULAR HGB CONC 33 % (32-36); MEAN CORPUSCULAR VOLUME 88 fL (79.0-98.0); MONOCYTES # (AUTO) 0.5 K/uL (0.0-1.0); MONOCYTES % (AUTO) 7.7 % (1.7-9.3); NEUTROPHILS # (AUTO) 3.5 K/uL (1.8-7.7); NEUTROPHILS % (AUTO) 58.8 % (40.0-70.0); PLATELET COUNT (AUTO) 273 K/uL (130-430); RED BLOOD CELL COUNT(AUTO) 3.89 MIL/uL (4.2-6.2); RED CELL DISTRIBUTION WIDTH 15.1 % (9.0-15.0); WHITE BLOOD COUNT (AUTO) 5.9 K/uL (4.8-10.8)
--- NOTE | 2021-03-09 07:05 | NUR ---
REPORT RECEIVED, PT LYING ON GURNEY VOICES NO COMPLAINTS
[2021-03-09 07:12] LABS: ANION GAP 12 (5-15); CALCIUM 8.7 mg/dL (8.4-11.0); CHLORIDE 102 mmol/L (98-107); CREATININE 0.67 mg/dL (0.55-1.30); GLUCOSE 124 mg/dL (70-99); POTASSIUM 3.7 mmol/L (3.5-5.1); SODIUM SERUM 137 mmol/L (136-145); UREA NITROGEN, BLOOD 10 mg/dL (8-21)
[2021-03-09 07:13] LABS: INR 0.9 (0.8-1.2); PROTHROMBIN TIME 9.7 SECS (9.5-12.5)
[2021-03-09 07:39] VITALS: BP_SYST 128
--- NOTE | 2021-03-09 07:41 | NUR ---
Patient given written and verbal discharge instructions and verbalizes understanding. MICKI DUQUE MD discussed with patient the results and treatment provided. Patient in stable condition. ID arm band removed. IV catheter removed intact and dressing applied, no active bleeding. Patient educated on pain management and to follow up with PMD. Pain Scale 0. Opportunity for questions provided and answered.
== END 2021-03-09 07:41 | disposition home or self-care (01) ==
LOC: SED 05:27
DX: R51.9 Headache, unspecified (principal); I10 Essential (primary) hypertension; E11.9 Type 2 diabetes mellitus without complications; K21.9 Gastro-esophageal reflux disease without esophagitis; Z79.84 Long term (current) use of oral hypoglycemic drugs; Z79.899 Other long term (current) drug therapy
CPT/HCPCS: 36415; 70450; 76376; 80048; 85025; 85610; 93005; 96374; 99285; J0780; J7040; Q0163

== ENCOUNTER 2021-05-16 17:11 | Emergency (ER) | payer OTHER, MEDICAID, SELFPAY ==
[~2021-05-16] VITALS: Ht 162.6 cm; Wt 73.5 kg
[2021-05-16 17:36] VITALS: BP_SYST 123
[2021-05-16] MEDS ORDERED: ONDANSETRON 4 MG ODT TAB PO ONE (21:00)
--- NOTE | 2021-05-16 21:05 | NUR ---
Patient to ER bed 7 to gown for evaluation. Side rails up. Report given to Briseyda doll. ER Dr. Dudley at bedside examining patient.
[2021-05-16 21:11] VITALS: BP_SYST 119
[2021-05-16] MEDS ORDERED: CEPH250C PO (21:20)
--- NOTE | 2021-05-16 21:35 | NUR ---
Patient given written and verbal discharge instructions and verbalizes understanding. ER MD discussed with patient the results and treatment provided. Patient in stable condition. ID arm band removed. Rx of keflex given. Patient educated on pain management and to follow up with PMD. Pain Scale 0. Opportunity for questions provided and answered. Medication side effect fact sheet provided.
[2021-05-16 21:38] LABS: BILIRUBIN,URINE NEGATIVE (NEGATIVE); BLOOD, URINE NEGATIVE (NEGATIVE); CLARITY/URINE CLEAR (CLEAR); COLOR,URINE YELLOW (YELLOW); GLUCOSE,URINE NEGATIVE (NEGATIVE); KETONES,URINE NEGATIVE (NEGATIVE); LEUKOCYTE ESTERASE ,URINE 2+ (NEGATIVE); NITRITE, URINE NEGATIVE (NEGATIVE); PH,URINE 7.5 (5.0-8.0); PROTEIN URINE NEGATIVE (NEGATIVE); UROBILINOGEN,URINE 0.2 (0.2-1.0)
[2021-05-16 21:47] LABS: BACTERIA,URINE FEW /HPF (None Seen); RBC,URINE 0-3 /HPF (0-3)
== END 2021-05-16 21:34 | disposition home or self-care (01) ==
LOC: SED 17:11
DX: N76.2 Acute vulvitis (principal); K21.9 Gastro-esophageal reflux disease without esophagitis; E11.9 Type 2 diabetes mellitus without complications; I10 Essential (primary) hypertension; J44.9 Chronic obstructive pulmonary disease, unspecified
CPT/HCPCS: 81000; 87086; 99284; Q0162; 99283

== ENCOUNTER 2022-07-20 14:09 | Emergency (ER) | payer OTHER, MEDICAID ==
[~2022-07-20] VITALS: Ht 170.2 cm; Wt 72.6 kg
[~2022-07-20 14:09] MED LIST changes: +CEPH250C PO
--- NOTE | 2022-07-20 14:27 | NUR ---
Pt brought in by self from home. Chief complaint itchy skin for past 6 months. Pt states triamcinolone and hydrocortisone cream ineffective. Pt has bilateral upper extremity with patchy purple pink dots and large left arm echymosis. Skin is pale dry and flaky. Pt is A&OX4
--- NOTE | 2022-07-20 14:32 | NUR ---
ER at bedside examining patient.
[2022-07-20] MEDS ORDERED: OMEP40CA20 PO (14:46)
[2022-07-20] MEDS ORDERED: ACETAMINOPHEN 500 MG TABLET PO ONE (15:00)
--- NOTE | 2022-07-20 15:00 | NUR ---
ER at bedside examining patient.
--- NOTE | 2022-07-20 15:11 | NUR ---
Pt complained of generalized head ache, MD notified, medicated per order.
[2022-07-20 15:41] LABS: BASOPHILS % (AUTO) 0.3 % (0.0-2.0); EOSINOPHILS # (AUTO) 0.1 K/uL (0.0-0.4); EOSINOPHILS % (AUTO) 1.4 % (0.0-4.0); HEMATOCRIT 36.3 % (36-48); HEMOGLOBIN 11.7 g/dL (12.0-16.0); LYMPHOCYTES # (AUTO) 1.6 K/uL (1.0-5.5); LYMPHOCYTES % (AUTO) 31.4 % (20.5-51.5); MEAN CORPUSCULAR HEMOGLOBIN 28 pg (27-31); MEAN CORPUSCULAR HGB CONC 32 % (32-36); MEAN CORPUSCULAR VOLUME 88 fL (79.0-98.0); MONOCYTES # (AUTO) 0.4 K/uL (0.0-1.0); MONOCYTES % (AUTO) 8.6 % (1.7-9.3); NEUTROPHILS % (AUTO) 58.3 % (40.0-70.0); PLATELET COUNT (AUTO) 288 K/uL (130-430); RED BLOOD CELL COUNT(AUTO) 4.14 MIL/uL (4.2-6.2); RED CELL DISTRIBUTION WIDTH 15.1 % (9.0-15.0); WHITE BLOOD COUNT (AUTO) 5.2 K/uL (4.8-10.8)
[2022-07-20 15:53] LABS: ANION GAP 11 (5-15); CALCIUM 8.7 mg/dL (8.4-11.0); CHLORIDE 102 mmol/L (98-107); CREATININE 0.66 mg/dL (0.55-1.30); GLUCOSE 129 mg/dL (70-99); UREA NITROGEN, BLOOD 10 mg/dL (8-21)
[2022-07-20 15:54] LABS: PROTHROMBIN TIME 10.4 SECS (9.5-12.5)
[2022-07-20 15:57] LABS: ALANINE AMINOTRANSFERASE 19 U/L (12-78); ALBUMIN 3.6 g/dL (3.4-4.8); ASPARTATE AMINOTRANSFERASE 10 U/L (10-37); TOTAL BILIRUBIN 0.4 mg/dL (0.0-1.0)
[2022-07-20] MEDS ORDERED: DIPH25CA83 PO (16:24)
--- NOTE | 2022-07-20 16:31 | NUR ---
Patient given written and verbal discharge instructions and verbalizes understanding. ER MD discussed with patient the results and treatment provided. Patient in stable condition. ID arm band removed. Rx of benadryl given. Patient educated on pain management and to follow up with PMD. Opportunity for questions provided and answered. Medication side effect fact sheet provided.
[2022-07-20 16:32] VITALS: BP_SYST 148
== END 2022-07-20 16:32 | disposition home or self-care (01) ==
LOC: SED 14:09
DX: S50.12XA Contusion of left forearm, initial encounter (principal); E11.9 Type 2 diabetes mellitus without complications; I10 Essential (primary) hypertension; K21.9 Gastro-esophageal reflux disease without esophagitis; Z79.899 Other long term (current) drug therapy; X78.9XXA Intentional self-harm by unspecified sharp object, initial encounter; Y93.89 Activity, other specified; Y92.89 Other specified places as the place of occurrence of the external cause; Y99.8 Other external cause status
CPT/HCPCS: 36415; 80053; 85025; 85610-TC; 85730-TC; 99283